=== PATIENT | female | born 1970 | race Hispanic/Latino ===

== ENCOUNTER 2025-08-26 09:30 | Emergency (ER) | payer OTHER ==
[2025-08-26] MEDS ORDERED: Ketorolac Tromethamine 30 MG (1 mL) VIAL ONE (09:53)
[2025-08-26] MEDS ORDERED: Ondansetron PF 4 MG/2 ML Vial ONE (09:53)
[2025-08-26 10:05] LABS: #Basophils Less than 0.03 10x3/uL (0.0-0.2); #Eosinophils 0.17 10x3/uL (0.0-0.5); #Monocytes 0.95 10x3/uL (0.0-1.1); #Neutrophils 6.53 10x3/uL (1.5-8.4); %Basophils 0.2 % (0.0-2.0); %Eosinophils 1.8 % (0.0-6.0); %Lymphocytes 18.7 % (18.0-47.0); %Monocytes 10.0 % (0.0-10.0); %Neutrophils 68.8 % (40.0-75.0); Hematocrit 42.3 % (34.9-44.5); Hemoglobin 14.5 g/dL (12.0-15.5); Mean Corpuscular Hemoglobin 29.7 pg (27.0-33.0); Mean Corpuscular Volume 86.7 fL (81.6-98.3); Platelet Count 283 10x3/uL (150-450); Red Blood Cell (RBC) Count 4.88 10x6/uL (3.90-5.03); White Blood Cell (WBC) Count 9.49 10x3/uL (3.5-10.5)
[2025-08-26 10:26] LABS: ALT (SGPT) 41 U/L (Less than 34); AST (SGOT) 31 U/L (11-34); Albumin 3.6 g/dL (3.1-4.5); Alkaline Phosphatase 172 U/L (40-110); Anion Gap 16 mmol/L (10-20); BUN (Urea Nitrogen) 11 mg/dL (9.8-20.1); Bilirubin, Total 0.6 mg/dL (0.3-1.2); Calc. Creatinine Clearance 0 mL/min (70-130); Calcium 9.2 mg/dL (7.8-10.44); Carbon Dioxide 24 mmol/L (22-29); Chloride 97 mmol/L (98-107); Globulin 4.0 g/dL (2.4-3.5); Glucose 292 mg/dL (70-105); Lipase 6 U/L (8-78); Potassium 4.5 mmol/L (3.5-5.1); Sodium 132 mmol/L (136-145)
[2025-08-26 10:29] LABS: Troponin I Less than 0.010 ng/mL (< 0.028)
== END 2025-08-26 12:27 | disposition home or self-care (01) ==
LOC: CSHERS 09:30
DX: K82.8 Other specified diseases of gallbladder (principal); K76.0 Fatty (change of) liver, not elsewhere classified; I10 Essential (primary) hypertension; E11.9 Type 2 diabetes mellitus without complications; Z79.4 Long term (current) use of insulin
CPT/HCPCS: 76705; 80053; 83605; 83690; 84484; 85025; 93005; 96361; 96374; 96375; J1885

== ENCOUNTER 2025-10-28 09:39 | Inpatient (IN) | payer OTHER ==
[2025-10-28 10:43] LABS: #Basophils Less than 0.03 10x3/uL (0.0-0.2); #Eosinophils 0.16 10x3/uL (0.0-0.5); #Monocytes 0.95 10x3/uL (0.0-1.1); #Neutrophils 7.11 10x3/uL (1.5-8.4); %Basophils 0.2 % (0.0-2.0); %Eosinophils 1.6 % (0.0-6.0); %Lymphocytes 14.8 % (18.0-47.0); %Monocytes 9.8 % (0.0-10.0); %Neutrophils 73.2 % (40.0-75.0); Hematocrit 38.2 % (34.9-44.5); Hemoglobin 12.9 g/dL (12.0-15.5); Mean Corpuscular Hemoglobin 29.4 pg (27.0-33.0); Mean Corpuscular Volume 87.0 fL (81.6-98.3); Platelet Count 262 10x3/uL (150-450); Red Blood Cell (RBC) Count 4.39 10x6/uL (3.90-5.03); White Blood Cell (WBC) Count 9.72 10x3/uL (3.5-10.5)
[2025-10-28 11:03] LABS: ALT (SGPT) 27 U/L (Less than 34); AST (SGOT) 17 U/L (11-34); Albumin 3.3 g/dL (3.1-4.5); Alkaline Phosphatase 193 U/L (40-110); Anion Gap 16 mmol/L (10-20); BUN (Urea Nitrogen) 9 mg/dL (9.8-20.1); Bilirubin, Total 0.6 mg/dL (0.3-1.2); Calc. Creatinine Clearance 0 mL/min (70-130); Calcium 8.9 mg/dL (7.8-10.44); Carbon Dioxide 24 mmol/L (22-29); Chloride 99 mmol/L (98-107); Globulin 3.6 g/dL (2.4-3.5); Potassium 4.6 mmol/L (3.5-5.1); Sodium 134 mmol/L (136-145)
[2025-10-28 11:07] LABS: Glucose 502 mg/dL (70-105)
[2025-10-28 11:56] LABS: Actual Bicarbonate (HCO3v) 23.4 mEq/L (22-28); Analyzer IN Cardio CS ER; Base Excess -0.7 mEq/L (-2 - +2); Calcium, Ionized (venous) 1.04 mmol/L (1.16-1.32); Chloride (VBG) 100 mmol/L (98-106); Hematocrit-VBG 43 % (36.0-47.0); Hemoglobin (Hb) 14.5 g/dL (11.7-16.0); Potassium (VBG) 3.99 mmol/L (3.70-5.30); Puncture Site Other Site; Sodium 132 mmol/L (133-146)
[2025-10-28] MEDS ORDERED: Calcium Carbonate 500 MG ChewTAB PO PRN (12:56)
[2025-10-28] MEDS ORDERED: Melatonin 3 MG TAB PO PRN (12:56)
[2025-10-28] MEDS ORDERED: Dextrose 50% Abboject 50 ML SYRINGE SLOW IVP PRN (12:56)
[2025-10-28] MEDS ORDERED: Glucagon 1 MG/ML KIT IM PRN ×2 (12:56→21:02)
[2025-10-28] MEDS ORDERED: Senokot S 8.6-50 MG TAB PO PRN (12:56)
[2025-10-28] MEDS ORDERED: Electrolyte Replacement Protocol 1 EACH FS SCH (13:00)
[2025-10-28] MEDS ORDERED: Vancomycin 1 GM in Premix 1 BAG IVPB SCH (13:15)
[2025-10-28] MEDS ORDERED: Potassium Chloride 20 MEQ in Premix 1 BAG IVPB PRN (14:15)
[2025-10-28] MEDS ORDERED: PHOS-NAK 1 PKT PACK PO PRN (14:15)
[2025-10-28 14:26] VITALS: BMI 28.8
[2025-10-28] MEDS: VANCOMYCIN 1.75 GM/350 ML BAG 1.75 GM in Premix 1 BAG IVPB SCH (16:13)
[2025-10-28] MEDS: Clindamycin/D5W 900 MG in Premix 1 BAG IVPB SCH (16:13)
[2025-10-28] MEDS ORDERED: Clindamycin/D5W 600 MG in Premix 1 BAG IVPB SCH (19:30)
[2025-10-28] MEDS: HumuLIN 70/30 100 Unit/ml 10 ml Vial SC SCH (21:32)
[2025-10-28 22:38] LABS: Glucose 565 mg/dL (70-105)
[2025-10-29] MEDS: Vancomycin 1 GM in Sodium Chloride 0.9% 250 ML 250 ML IVPB SCH (00:15)
[2025-10-29] MEDS: HumuLIN 70/30 100 Unit/ml 10 ml Vial SC SCH (04:28)
[2025-10-29 04:35] LABS: #Basophils 0.04 10x3/uL (0.0-0.2); #Eosinophils 0.26 10x3/uL (0.0-0.5); #Monocytes 0.90 10x3/uL (0.0-1.1); #Neutrophils 4.60 10x3/uL (1.5-8.4); %Basophils 0.5 % (0.0-2.0); %Eosinophils 3.5 % (0.0-6.0); %Lymphocytes 22.4 % (18.0-47.0); %Monocytes 12.0 % (0.0-10.0); %Neutrophils 61.2 % (40.0-75.0); Hematocrit 36.3 % (34.9-44.5); Hemoglobin 12.5 g/dL (12.0-15.5); Mean Corpuscular Hemoglobin 30.0 pg (27.0-33.0); Mean Corpuscular Volume 87.3 fL (81.6-98.3); Platelet Count 301 10x3/uL (150-450); Red Blood Cell (RBC) Count 4.16 10x6/uL (3.90-5.03); White Blood Cell (WBC) Count 7.51 10x3/uL (3.5-10.5)
[2025-10-29 04:45] LABS: Anion Gap 11 mmol/L (10-20); BUN (Urea Nitrogen) 13 mg/dL (9.8-20.1); Calc. Creatinine Clearance 106 mL/min (70-130); Calcium 9.1 mg/dL (7.8-10.44); Carbon Dioxide 25 mmol/L (22-29); Chloride 105 mmol/L (98-107); Glucose 288 mg/dL (70-105); Magnesium 1.7 mg/dL (1.6-2.6); Potassium 4.0 mmol/L (3.5-5.1); Sodium 137 mmol/L (136-145)
[2025-10-29 06:02] LABS: Vancomycin, Random 20.0 ug/mL (See Comment)
[2025-10-29] MEDS: Acetaminophen 325 MG TAB PO PRN (07:33)
[2025-10-29] MEDS: Enoxaparin 40 MG (0.4 mL) SYRINGE SC SCH (08:28)
[2025-10-29] MEDS: Magnesium 2 GM/50 ML(in water) 2 GM in Premix 1 BAG IVPB PRN (09:42)
[2025-10-29] MEDS: VANCOMYCIN 1.25 GM/250 ML BAG 1.25 GM in Premix 1 BAG IVPB SCH (09:42)
[2025-10-30 04:36] LABS: #Basophils 0.03 10x3/uL (0.0-0.2); #Eosinophils 0.26 10x3/uL (0.0-0.5); #Monocytes 0.86 10x3/uL (0.0-1.1); #Neutrophils 3.97 10x3/uL (1.5-8.4); %Basophils 0.4 % (0.0-2.0); %Eosinophils 3.7 % (0.0-6.0); %Lymphocytes 27.2 % (18.0-47.0); %Monocytes 12.2 % (0.0-10.0); %Neutrophils 56.1 % (40.0-75.0); Hematocrit 36.1 % (34.9-44.5); Hemoglobin 12.2 g/dL (12.0-15.5); Mean Corpuscular Hemoglobin 30.3 pg (27.0-33.0); Mean Corpuscular Volume 89.6 fL (81.6-98.3); Platelet Count 272 10x3/uL (150-450); Red Blood Cell (RBC) Count 4.03 10x6/uL (3.90-5.03); White Blood Cell (WBC) Count 7.07 10x3/uL (3.5-10.5)
[2025-10-30 04:50] LABS: ALT (SGPT) 91 U/L (Less than 34); AST (SGOT) 75 U/L (11-34); Albumin 2.7 g/dL (3.1-4.5); Alkaline Phosphatase 239 U/L (40-110); Anion Gap 9 mmol/L (10-20); BUN (Urea Nitrogen) 14 mg/dL (9.8-20.1); Bilirubin, Total 0.2 mg/dL (0.3-1.2); Calc. Creatinine Clearance 106 mL/min (70-130); Calcium 8.7 mg/dL (7.8-10.44); Carbon Dioxide 26 mmol/L (22-29); Chloride 106 mmol/L (98-107); Globulin 3.5 g/dL (2.4-3.5); Glucose 121 mg/dL (70-105); Potassium 3.8 mmol/L (3.5-5.1); Sodium 137 mmol/L (136-145)
[2025-10-30] MEDS: Ketorolac Tromethamine 30 MG (1 mL) VIAL IVP SCH (12:26)
[2025-10-30] MEDS: Fluconazole 100 MG TAB PO SCH (17:11)
[2025-10-30] MEDS: HumuLIN 70/30 100 Unit/ml 10 ml Vial SC SCH (20:56)
[2025-10-31 04:31] LABS: #Basophils 0.03 10x3/uL (0.0-0.2); #Eosinophils 0.24 10x3/uL (0.0-0.5); #Monocytes 0.74 10x3/uL (0.0-1.1); #Neutrophils 2.99 10x3/uL (1.5-8.4); %Basophils 0.5 % (0.0-2.0); %Eosinophils 4.1 % (0.0-6.0); %Lymphocytes 31.6 % (18.0-47.0); %Monocytes 12.6 % (0.0-10.0); %Neutrophils 50.7 % (40.0-75.0); Hematocrit 34.4 % (34.9-44.5); Hemoglobin 11.4 g/dL (12.0-15.5); Mean Corpuscular Hemoglobin 29.5 pg (27.0-33.0); Mean Corpuscular Volume 89.1 fL (81.6-98.3); Platelet Count 267 10x3/uL (150-450); Red Blood Cell (RBC) Count 3.86 10x6/uL (3.90-5.03); White Blood Cell (WBC) Count 5.89 10x3/uL (3.5-10.5)
[2025-10-31 04:47] LABS: Vancomycin, Random 16.5 ug/mL (See Comment)
[2025-10-31 04:49] LABS: ALT (SGPT) 54 U/L (Less than 34); AST (SGOT) 27 U/L (11-34); Albumin 2.5 g/dL (3.1-4.5); Alkaline Phosphatase 190 U/L (40-110); Anion Gap 11 mmol/L (10-20); BUN (Urea Nitrogen) 15 mg/dL (9.8-20.1); Bilirubin, Total 0.1 mg/dL (0.3-1.2); Calc. Creatinine Clearance 102 mL/min (70-130); Calcium 8.6 mg/dL (7.8-10.44); Carbon Dioxide 23 mmol/L (22-29); Chloride 106 mmol/L (98-107); Globulin 3.3 g/dL (2.4-3.5); Glucose 299 mg/dL (70-105); Potassium 4.3 mmol/L (3.5-5.1); Sodium 136 mmol/L (136-145)
[2025-10-31] MEDS ORDERED: PROPOFOL 20 ML ONE (12:34)
[2025-10-31] MEDS ORDERED: Ketorolac Tromethamine 30 MG (1 mL) VIAL ONE (14:21)
[2025-10-31] MEDS ORDERED: HYDROmorphone 0.5 MG/0.5 ML SYRINGE ONE ×2 (14:21→14:44)
[2025-10-31] MEDS: Ondansetron PF 4 MG/2 ML Vial IVP PRN (16:28)
[2025-10-31] MEDS: Vancomycin HCl 750 MG in Sodium Chloride 0.9% 250 ML 250 ML IVPB SCH (16:30)
[2025-10-31] MEDS: HumuLIN 70/30 100 Unit/ml 10 ml Vial SC SCH (23:19)
[2025-11-01 04:06] LABS: #Basophils 0.03 10x3/uL (0.0-0.2); #Eosinophils 0.24 10x3/uL (0.0-0.5); #Monocytes 1.19 10x3/uL (0.0-1.1); #Neutrophils 6.08 10x3/uL (1.5-8.4); %Basophils 0.3 % (0.0-2.0); %Eosinophils 2.5 % (0.0-6.0); %Lymphocytes 20.1 % (18.0-47.0); %Monocytes 12.5 % (0.0-10.0); %Neutrophils 63.9 % (40.0-75.0); Hematocrit 34.8 % (34.9-44.5); Hemoglobin 11.5 g/dL (12.0-15.5); Mean Corpuscular Hemoglobin 29.7 pg (27.0-33.0); Mean Corpuscular Volume 89.9 fL (81.6-98.3); Platelet Count 254 10x3/uL (150-450); Red Blood Cell (RBC) Count 3.87 10x6/uL (3.90-5.03); White Blood Cell (WBC) Count 9.53 10x3/uL (3.5-10.5)
[2025-11-01 04:35] LABS: ALT (SGPT) 44 U/L (Less than 34); AST (SGOT) 22 U/L (11-34); Albumin 2.6 g/dL (3.1-4.5); Alkaline Phosphatase 188 U/L (40-110); Anion Gap 11 mmol/L (10-20); BUN (Urea Nitrogen) 12 mg/dL (9.8-20.1); Bilirubin, Total 0.2 mg/dL (0.3-1.2); Calc. Creatinine Clearance 98 mL/min (70-130); Calcium 8.7 mg/dL (7.8-10.44); Carbon Dioxide 25 mmol/L (22-29); Chloride 106 mmol/L (98-107); Globulin 3.4 g/dL (2.4-3.5); Glucose 345 mg/dL (70-105); Potassium 4.7 mmol/L (3.5-5.1); Sodium 137 mmol/L (136-145)
[2025-11-01] MEDS: PNEUMOC 20-VAL CONJ-DIP CRM/PF 0.5 ML SYRINGE IM ONE (08:25)
[2025-11-01] MEDS: FLU (Fluarix Triv) 25-26 (6MOS UP)/PF 45 MCG/0.5 ML Syringe IM ONE (08:25)
[2025-11-01] MEDS ORDERED: metFORMIN 850 MG TAB PO SCH (09:46)
[2025-11-01] MEDS: Ketorolac Tromethamine 30 MG (1 mL) VIAL IVP PRN (10:19)
[2025-11-01] MEDS: HumuLIN 70/30 100 Unit/ml 10 ml Vial SC SCH (20:10)
[2025-11-02 05:06] LABS: #Basophils Less than 0.03 10x3/uL (0.0-0.2); #Eosinophils 0.15 10x3/uL (0.0-0.5); #Monocytes 1.15 10x3/uL (0.0-1.1); #Neutrophils 6.05 10x3/uL (1.5-8.4); %Basophils 0.1 % (0.0-2.0); %Eosinophils 1.7 % (0.0-6.0); %Lymphocytes 17.5 % (18.0-47.0); %Monocytes 12.8 % (0.0-10.0); %Neutrophils 67.1 % (40.0-75.0); Hematocrit 32.1 % (34.9-44.5); Hemoglobin 10.7 g/dL (12.0-15.5); Mean Corpuscular Hemoglobin 30.0 pg (27.0-33.0); Mean Corpuscular Volume 89.9 fL (81.6-98.3); Platelet Count 239 10x3/uL (150-450); Red Blood Cell (RBC) Count 3.57 10x6/uL (3.90-5.03); White Blood Cell (WBC) Count 9.01 10x3/uL (3.5-10.5)
[2025-11-02 05:24] LABS: Vancomycin, Random 15.5 ug/mL (See Comment)
[2025-11-02 05:28] LABS: ALT (SGPT) 33 U/L (Less than 34); AST (SGOT) 20 U/L (11-34); Albumin 2.4 g/dL (3.1-4.5); Alkaline Phosphatase 148 U/L (40-110); Anion Gap 8 mmol/L (10-20); BUN (Urea Nitrogen) 12 mg/dL (9.8-20.1); Bilirubin, Total 0.1 mg/dL (0.3-1.2); Calc. Creatinine Clearance 112 mL/min (70-130); Calcium 8.4 mg/dL (7.8-10.44); Carbon Dioxide 25 mmol/L (22-29); Chloride 108 mmol/L (98-107); Globulin 3.2 g/dL (2.4-3.5); Glucose 107 mg/dL (70-105); Potassium 4.0 mmol/L (3.5-5.1); Sodium 137 mmol/L (136-145)
[2025-11-02] MEDS ORDERED: Magnesium 2 GM/50 ML(in water) 2 GM in Premix 1 BAG IVPB PRN (07:35)
[2025-11-02] MEDS ORDERED: PHOS-NAK 1 PKT PACK PO PRN (07:45)
[2025-11-02] MEDS ORDERED: Potassium Chloride 20 MEQ in Premix 1 BAG IVPB PRN (07:45)
[2025-11-02] MEDS: metFORMIN 850 MG TAB PO SCH (08:06)
[2025-11-02 10:34] VITALS: BP 136/81; TEMP 98
[2025-11-02] MEDS ORDERED: Ibuprofen 200 MG TAB PO PRN (14:00)
== END 2025-11-02 11:17 | disposition home or self-care (01) | DRG 747 ==
LOC: CSHERS 09:39 → CSHTELE 12:57
PROVIDERS: ADMIT Student in an Organized Health Care Education/Training Program; ATTEND Hospitalist
PROC: 3E03329 Introduction of Other Anti-infective into Peripheral Vein, Percutaneous Approach (ICD-10-PCS; 2025-10-28)
PROC: 0U9M0ZZ Drainage of Vulva, Open Approach (ICD-10-PCS; principal; 2025-10-29)
DX: N76.4 Abscess of vulva (principal); N76.2 Acute vulvitis; I10 Essential (primary) hypertension; Z90.710 Acquired absence of both cervix and uterus; Z87.42 Personal history of other diseases of the female genital tract; E11.65 Type 2 diabetes mellitus with hyperglycemia; Z79.4 Long term (current) use of insulin; F10.90 Alcohol use, unspecified, uncomplicated; R79.89 Other specified abnormal findings of blood chemistry; Z79.899 Other long term (current) drug therapy; Z90.721 Acquired absence of ovaries, unilateral; D25.9 Leiomyoma of uterus, unspecified
CPT/HCPCS: 36415; 36416; 72193; 76705; 80048; 80053; 80202; 82010; 82805; 83036; 83605; 83735; 84100; 85025; 86140; 87040; 87070; 87077; 87186; 87205; 94760; 94762; 96374; 96375; J0692; J1171; J1650; J1815; J1885; J2270; J2272; J2405; J2543; J2704; J3373; J3375; J3475; J3490; J7030; J7050

== ENCOUNTER 2025-11-22 09:13 | Emergency (ER) | payer OTHER ==
[2025-11-22] MEDS ORDERED: Ketorolac Tromethamine 30 MG (1 mL) VIAL ONE (10:15)
[2025-11-22 10:46] LABS: #Basophils 0.03 10x3/uL (0.0-0.2); #Eosinophils 0.36 10x3/uL (0.0-0.5); #Monocytes 0.82 10x3/uL (0.0-1.1); #Neutrophils 4.61 10x3/uL (1.5-8.4); %Basophils 0.4 % (0.0-2.0); %Eosinophils 4.6 % (0.0-6.0); %Lymphocytes 25.3 % (18.0-47.0); %Monocytes 10.5 % (0.0-10.0); %Neutrophils 58.8 % (40.0-75.0); Hematocrit 44.0 % (34.9-44.5); Hemoglobin 15.0 g/dL (12.0-15.5); Mean Corpuscular Hemoglobin 29.6 pg (27.0-33.0); Mean Corpuscular Volume 87.0 fL (81.6-98.3); Platelet Count 265 10x3/uL (150-450); Red Blood Cell (RBC) Count 5.06 10x6/uL (3.90-5.03); White Blood Cell (WBC) Count 7.83 10x3/uL (3.5-10.5)
[2025-11-22 11:05] LABS: ALT (SGPT) 27 U/L (Less than 34); AST (SGOT) 24 U/L (11-34); Albumin 4.6 g/dL (3.1-4.5); Alkaline Phosphatase 268 U/L (40-110); Anion Gap 16 mmol/L (10-20); BUN (Urea Nitrogen) 16 mg/dL (9.8-20.1); Bilirubin, Total 0.3 mg/dL (0.3-1.2); Calc. Creatinine Clearance 0 mL/min (70-130); Calcium 10.6 mg/dL (7.8-10.44); Carbon Dioxide 26 mmol/L (22-29); Chloride 96 mmol/L (98-107); Globulin 4.4 g/dL (2.4-3.5); Lipase 21 U/L (8-78); Potassium 4.5 mmol/L (3.5-5.1); Sodium 133 mmol/L (136-145)
[2025-11-22 11:17] LABS: Glucose 466 mg/dL (70-105)
[2025-11-22] MEDS ORDERED: Iopamidol 300 61% 100 ML VIAL FS ONE (11:37)
[2025-11-22] MEDS ORDERED: Sulfameth/Trimethoprim DS 800-160mg TAB ONE (12:25)
[2025-11-22] MEDS ORDERED: Amoxicillin/Potassium Clav 875 MG TAB ONE (13:38)
== END 2025-11-22 13:50 | disposition home or self-care (01) ==
LOC: CSHERS 09:13
DX: N76.2 Acute vulvitis (principal); I10 Essential (primary) hypertension; E11.9 Type 2 diabetes mellitus without complications; Z79.4 Long term (current) use of insulin
CPT/HCPCS: 36416; 74177; 80053; 83690; 85025; 96374; J1815; J1885; Q9967